=== PATIENT | female | born 1950 | race Caucasian/White ===

== ENCOUNTER → 2019-11-20 | Outpatient (CLI) | payer MEDICARE ==
--- NOTE | 2019-11-20 13:58 | REPPI ---
REASON: Pain. PRIORS: None. The bones are somewhat demineralized. There are plantar and retrocalcaneal heel spurs present. There is no acute fracture. IMPRESSION: Chronic changes as described above. Electronically Signed by Juan Interiano DO 11/20/2019 04:50 P
--- NOTE | 2019-11-20 14:00 | REPPI ---
REASON: Pain and swelling present. There is mild tricompartmental osteophytosis with patellofemoral joint space narrowing. There is no acute fracture, dislocation or subluxation. Electronically Signed by Juan Interiano DO 11/20/2019 04:50 P
== END ==
LOC: M PLAIMG 11:25
PROVIDERS: ATTEND Internal Medicine Infectious Disease
DX: M17.11 Unilateral primary osteoarthritis, right knee (principal); M77.31 Calcaneal spur, right foot; M25.461 Effusion, right knee; M25.471 Effusion, right ankle; A69.20 Lyme disease, unspecified; R29.6 Repeated falls; M79.10 Myalgia, unspecified site
CPT/HCPCS: 36415; 73564; 73610; 82085; 82550; 82607; 82746; 85025; 85652; 86140; G0463

== ENCOUNTER → 2019-11-20 | Outpatient (REF) | payer MEDICARE ==
[2019-11-20 13:45] LABS: BASO % 0.6 % (0.0-1.0); EOS # 0.1 10^3/uL (0.0-0.5); HEMATOCRIT 39.5 % (36.0-47.0); HEMOGLOBIN 12.8 g/dl (12.0-15.5); LYMPH # 2.1 10^3/uL (1.5-5.0); LYMPH % 42.9 % (24.0-44.0); MEAN CORPUSCULAR HEMOGLOBIN 29.3 pg (27.0-33.0); MEAN CORPUSCULAR HGB CONC 32.4 g/dl (32.0-36.5); MEAN CORPUSCULAR VOLUME 90.4 fl (80.0-96.0); MONO # 0.3 10^3/uL (0.0-0.8); MONO % 6.4 % (0.0-5.0); NEUTROPHILS # 2.4 10^3/uL (1.5-8.5); NEUTROPHILS % 48.9 % (36.0-66.0); PLATELET COUNT, AUTOMATED 297 10^3/uL (150-450); RED BLOOD COUNT 4.37 10^6/uL (4.00-5.40); WHITE BLOOD COUNT 4.8 10^3/uL (4.0-10.0)
[2019-11-20 13:52] LABS: C REACTIVE PROTEIN QUANTITATIV < 0.30 MG/DL (0.00-0.30); CPK CREATINE PHOSPHOKINASE 77 U/L (26-192)
[2019-11-20 14:01] LABS: FOLATE 17.6 NG/ML; VITAMIN B12 LEVEL 398 PG/ML
[2019-11-20 14:12] LABS: ERYTHROCYTE SEDIMENTATION RATE 28 mm/hr (0-30)
== END ==
LOC: M SFHCPLAZ 11:21
PROVIDERS: ATTEND Internal Medicine Infectious Disease
DX: A69.20 Lyme disease, unspecified (principal); R29.6 Repeated falls; M79.10 Myalgia, unspecified site

== ENCOUNTER → 2025-03-09 | Outpatient (CLI) | payer MEDICARE ==
[2025-03-09 13:38] LABS: C REACTIVE PROTEIN QUANTITATIV < 0.50 MG/DL (<1.0)
[2025-03-09 13:53] LABS: BASO # 0.0 10^3/uL (0.0-0.2); BASO % 0.5 % (0.0-1.0); EOS # 0.1 10^3/uL (0.0-0.5); EOS % 2.1 % (0.0-3.0); LYMPH # 1.9 10^3/uL (1.5-5.0); LYMPH % 30.9 % (24.0-44.0); MONO # 0.4 10^3/uL (0.0-0.8); MONO % 5.9 % (2.0-8.0); NEUTROPHILS # 3.7 10^3/uL (1.5-8.5); NEUTROPHILS % 60.3 % (36.0-66.0); PLATELET COUNT, AUTOMATED 333 10^3/uL (150-450)
[2025-03-09 14:00] LABS: ERYTHROCYTE SEDIMENTATION RATE 91 mm/hr (0-30)
[2025-03-09 14:26] LABS: IRON (FE) 17 UG/DL (50-170); PERCENT SATURATION 4.1 % (13.2-45.0)
== END ==
LOC: M PLALAB 11:19
PROVIDERS: ATTEND Internal Medicine Infectious Disease
DX: A69.20 Lyme disease, unspecified (principal); D50.9 Iron deficiency anemia, unspecified